=== PATIENT | female | born 1965 | race Two or more races ===

== ENCOUNTER → 2025-05-09 | Outpatient (CLI) | payer MEDICAID, SELFPAY ==
--- NOTE | 2025-05-09 09:00 | XR_ITS ---
EXAMINATION: Esophagram standard Fluoroscopy Upright soft tissue lateral neck single view Upright PA chest single view 15 spot fluoroscopic films of the esophagus Date and time: May 09, 2025, 0851 hours INDICATIONS: Choking with eating solid foods weight loss 11 months FINDINGS: Soft tissue lateral neck single view demonstrates cervical fusion C4-C5 with anatomic alignment Moderate degenerative disc disease C5-C6 Normal epiglottis Upright PA chest, normal heart size Stable pulmonary nodule right upper lobe compared with January 12, 2023 No pneumonia or pulmonary edema Patient swallowed thin barium with 15 spot fluoroscopic films of the esophagus Fluoroscopy 0.2-minute radiation dose 29.54 mGy Primary peristaltic esophageal waves noted Numerous secondary and tertiary esophageal contractions Mild intermittent gastroesophageal reflux There is no stricture at the gastroesophageal junction No esophageal ulceration or constricting esophageal lesion noted IMPRESSION: Significant esophageal dysmotility Mild intermittent gastroesophageal reflux No stricture at the gastroesophageal junction
== END | disposition home or self-care (01) ==
PROVIDERS: PCP Physician Assistant; Referring Provider Physician Assistant; Visit Provider Physician Assistant
DX: K21.9 Gastro-esophageal reflux disease without esophagitis (principal); K22.89 Other specified disease of esophagus
CPT/HCPCS: 74220; A4649